=== PATIENT | female | born 1935 | race Caucasian/White ===

== ENCOUNTER 2017-01-03 22:54 | Inpatient (IN) | payer OTHER ==
--- NOTE | ~2017-01-03 | DS ---
Discharge Summary [place] [id number] [place]. [address] NAME: KARINA BARRAGAN : 33 STATUS : DIS IN PAT#: [id number] AGE: 81 ADM/REG DATE : 01/04/17 MR#: [id number] REPORT SERV DATE: 01/10/17 DICTATED BY: DATE: REPORT STATUS : Draft TRANSCRIBED BY: MODL DATE: 01/09/17 ADMISSION DATE: 01/04/2017 DISCHARGE DATE: 01/09/2017 DISCHARGE DIAGNOSES: 1. Diastolic heart failure. 2. Atrial fibrillation with rapid ventricular response. 3. Left pleural effusion. 4. Acute kidney injury and chronic kidney disease. 5. Diabetes mellitus, type 2. 6. Hypertension. 7. Right knee pain. CONSULTING PHYSICIANS: Include Dr. Aaron Cotto with Nephrology as well as Dr. Cerda with Orthopedic Surgery. DISCHARGE MEDICATION: Include Norvasc 10 mg p.o. daily, Lipitor 40 mg p.o. daily at bedtime, Coreg 12.5 mg p.o. b.i.d., vitamin B12 1000 mcg IM every Thursday, Zantac 150 mg p.o. b.i.d., Tricor 145 mg p.o. daily, ferrous sulfate 325 mg p.o. daily, Lantus 30 units subcu at 6 a.m. and 1700, Nitro-Bid ointment 0.5 inches q.12 hours, Apresoline 50 mg p.o. q.8 hours, Januvia 100 mg p.o. daily, Percocet 10/325 mg tablet q.4 hours p.r.n. for pain, Glynase 9 mg p.o. daily, Zofran 4 mg p.o. q.6 hours p.r.n. for nausea, Xarelto 15 mg p.o. with supper daily. IMAGING: Includes multiple chest x-rays, the last showing left pleural effusion that is not reticulated since prior thoracentesis. No pneumothorax was noted. Bibasilar atelectasis had improved and cardiomegaly was present but unchanged. The patient had a CT of the chest without contrast. This demonstrated bilateral pleural fluid and bibasilar atelectasis, slight mediastinal lymph node prominence that was nonspecific, calcific atherosclerosis including involvement of coronary arteries. She also had a CT of the abdomen and pelvis without contrast that showed colonic diverticula without diverticulitis. She has had a left renal cyst with minimal adjacent calcification. No evidence of an acute abnormality was noted in the abdomen or pelvis. PROCEDURES: The patient had thoracentesis in Interventional Radiology performed by Dr. Spencer Bond on 01/05/2017 to a total of 750 mL of fluid evacuated as noted above in the portable chest x-ray, and the patient had no further accumulation of the pleural fluid. She also had an x-ray of the right knee which demonstrated moderately severe degenerative changes with severe narrowing of the lateral joint compartment, possible small suprapatellar effusion. Dr. Cerda performed a cortisone injection on the right knee and the patient's pain has subsequently improved. For full history and physical, please refer to Dr. Chester Grace's dictation on 01/03/2017. Please also see Dr. Aaron Cotto's consultation dictation on 01/04/[address] Anderson Mcintosh's consultation dictation on 01/04/2017. HOSPITAL COURSE/PROBLEM LIST: Initially the patient was admitted with acute renal failure, hyperkalemia, and uncontrolled diastolic heart failure. She was found to have a left pleural effusion that was drained via thoracentesis by Dr. Bond as mentioned above. Discharge Summary [address] [address] NAME: KARINA BARRAGAN : 33 STATUS : DIS IN PAT#: [id number] AGE: 81 ADM/REG DATE : 01/04/17 MR#: [id number] REPORT SERV DATE: 01/10/17 DICTATED BY: DATE: REPORT STATUS : Draft TRANSCRIBED BY: MODL DATE: 01/09/17 Pleural fluid has not reaccumulated. Nephrology Dr. Aaron Cotto has followed the patient throughout her hospital course. Her creatinine is stable and currently is 2.32. Dr. Cotto agrees that the patient can be safely discharged. She will follow up with him in three to four weeks and continue Lasix 40 mg p.o. b.i.d. During her hospital stay, the patient went into atrial fibrillation with rapid ventricular response. She was started on a Cardizem drip and transitioned to Coreg p.o. Her heart rate is now controlled and she is sinus rhythm on the monitor. The patient states that she does not have a history of atrial fibrillation; however, she is on Rythmol for an unclear reason, likely this was for paroxysmal atrial fibrillation and the patient is a poor historian. Due to her renal function, I will not continue her Rythmol but keep her on Coreg as this seemed to control her rate. Based on her CHADSVASc score, I will also place her on Xarelto 15 mg p.o. daily. She will need to follow up with Cardiology for further management of this, also her diastolic heart failure which seems to be controlled at this time. She will need to follow up with further outpatient workup with the kiln hand. Dr. Mcintosh recommends that the patient get myocardial perfusion imaging at some point as an outpatient, so we will set this up for her prior to discharge. The patient has diabetes mellitus type 2 and she is noncompliant. Her blood sugars have been uncontrolled. After her knee injection with cortisol, her blood sugar actually was in the 400s. The patient states that this must be the cortisol. However, her RN yesterday found the patient drinking Mountain Dew that her family member brought in. This was discussed with the patient that this is not a good dietary choice for her diabetes mellitus and that she needs to get better control of her diabetes. She will follow up with her primary care doctor, Dr. Austin Ding within one week. I will continue her home regimen of Lantus as well as oral agents and have the patient monitor her blood sugar closely. The patient also has a history of hypertension. During her hospital stay, her blood pressure has been somewhat erratic ranging from 120s to 170 systolic. I will continue the patient on Coreg 12.5 mg p.o. b.i.d., as well as hydralazine p.o. Again, she will follow with her primary care doctor within one week for further management of her hypertension. The right knee pain has improved since her cortisol injection with Dr. Cerda. She can follow up p.r.n. as an outpatient if the pain returns. She is currently hemodynamically stable with the blood pressure at 168/70, heart rate 66, respirations 18, O2 saturation 94% on room air, temperature 97.6. CLR/MODL Eduard Wiggins NP / [id number] CC: MD Austin Velarde M.D. Claude Galphin, M.D.
--- NOTE | ~2017-01-03 | CN ---
Consultation Report [facility] [address] [place]. [address] NAME: KARINA RUBIO : 33 STATUS : ADM IN [facility]#: [id number] AGE: 81 ADM/REG DATE : 01/04/17 MR#: [id number] REPORT SERV DATE: 01/04/17 DICTATED BY: TALA PARNELL DATE: 01/04/17 REPORT STATUS : Draft TRANSCRIBED BY: MODL DATE: 01/04/17 CARDIOLOGY CONSULTATION DATE OF CONSULTATION: 01/04/2017 REASON FOR CONSULTATION: This is in regard to congestive heart failure. HISTORY OF PRESENT ILLNESS: Ms. Rubio is a pleasant 81-year-old woman, with a recent diagnosis of congestive heart failure. She presented to [facility] with symptoms of shortness of breath and worsening pedal edema. She underwent diuresis there that was continued as an outpatient. Her rehabilitation center that she was sent to after leaving [facility], she was noted to have worsening hyperkalemia, and worsening renal insufficiency, as well as shortness of breath, and dyspnea on exertion. She was admitted through the emergency room here. Chest x-ray demonstrated a large left pleural effusion as well as some pulmonary vascular congestion. She also had a potassium of 6.0 and a creatinine of 3.0. PAST MEDICAL HISTORY: Notable for congestive heart failure of uncertain etiology, hypertension, diabetes, GERD, and hyperlipidemia. HOME MEDICATIONS: Atorvastatin, atenolol, amlodipine, iron, Lasix 40 mg p.o. daily, glyburide, hydralazine, insulin. The patient is also taking propafenone for unclear reasons. FAMILY HISTORY: Noncontributory. Negative for premature coronary disease. SOCIAL HISTORY: Negative for tobacco or alcohol. REVIEW OF SYSTEMS: As noted above. All other systems were reviewed and negative. PHYSICAL EXAMINATION: VITAL SIGNS: Blood pressure of 140/60, pulse of 62, and respirations 18. GENERAL: Well developed, well nourished. HEENT: No icterus. Good dentition. NECK: Supple. No masses or thyromegaly LUNGS: Decreased breath sounds in the left base. COR: Normal S1, S2. No S3 or S4. No murmurs, clicks, rubs. No JVD ABD: Soft, nondistended, nontender, no hepatosplenomegaly. EXT: No clubbing, cyanosis or edema. Peripheral pulses 2+ or equal bilaterally. SKIN: Warm and dry. No visible lesions. MS: Chest wall without deformity, no obvious clavicular fractures. NEURO/PSYCH: Oriented X3. No anxiety or depression. Consultation Report [place] [address] [place]. [address] NAME: KARINA RUBIO : 33 STATUS : ADM IN [facility]#: [id number] AGE: 81 ADM/REG DATE : 01/04/17 MR#: [id number] REPORT SERV DATE: 01/04/17 DICTATED BY: TALA PARNELL DATE: 01/04/17 REPORT STATUS : Draft TRANSCRIBED BY: DARRIAN DATE: 01/04/17 DIAGNOSTIC DATA: EKG demonstrates sinus rhythm, IVCD of a left bundle-branch block type, cannot exclude anterior and inferior infarction. LABORATORY DATA: Initial laboratories; white count of 9.3, hematocrit 32, and platelet count 310. Sodium 139, potassium 6.0, creatinine 3.0, BNP is 708. Chest x-ray pulmonary edema, and large left pleural effusion. RECOMMENDATIONS: Potassium was treated last evening with bicarb diuretic. Nephrology consult was placed as well. I would consider a thoracentesis for the large left pleural effusion which would hopefully improve the patient's symptoms. If we cannot find a recent echocardiogram at [facility], I would recommend performing an another echocardiogram. At some point, could consider ischemia workup possibly with myocardial perfusion imaging. Of note, the patient also has a history of ureteral stent. We will defer to Nephrology likely renal ultrasound to make certain that there is no significant obstruction or hydronephrosis. EMILY/DARRIAN Tala Parnell M.D. / [id number] CC: Gladys Hood M.D.
--- NOTE | ~2017-01-03 | HP ---
History And Physical [facility] [address] [place]. [address] NAME: KARINA BARRAGAN : 33 STATUS : ADM IN [facility]#: [id number] AGE: 81 ADM/REG DATE : 01/04/17 MR#: [id number] REPORT SERV DATE: 01/04/17 DICTATED BY: ILIANA RIBEIRO DATE: 01/04/17 REPORT STATUS : Draft TRANSCRIBED BY: MODMaru DATE: 01/04/17 DATE OF ADMISSION: 01/04/2017 CHIEF COMPLAINT: An 81-year-old female recently diagnosed with new onset of congestive heart failure, now presenting with acute renal failure, hyperkalemia, and evidence of uncontrolled congestive heart failure. HISTORY OF PRESENTING ILLNESS: The patient's history was obtained through careful interview with the patient, daughter, and granddaughter coupled with review of [facility] medical records and medical records obtained from [facility]. The patient in late November 2016 developed increasing shortness of breath and lower extremity edema, presented to [facility] with an O2 saturation of 72% on room air, and signs and symptoms of congestive heart failure. She was admitted, ruled out for pneumonia and placed on diuretics. She improved considerably and was able to be discharged to [facility] on December 26. She has continued Lasix and treatments for heart failure, but this has actually led to progressive kidney dysfunction and evidence of hyperkalemia at the facility, this therefore prompted the facility to send the patient our hospital for further evaluation. The patient has had dyspnea on exertion with physical therapy attempts. She has had extreme orthopnea and paroxysmal nocturnal dyspnea. She has extreme tight lower extremity edema that has been progressing and abdominal swelling as well. She describes a cough productive of clear phlegm. She has had some intermittent confusion too bad. Sometimes her blood sugars have also been quite elevated over 200. Her main pain complaint has been in her knees and her back, but states at time she hurts "all over." She is unable to give a precise quality or severity of the pain, just stating "it is just bad". REVIEW OF SYSTEMS: Otherwise, a 14-point review of systems was obtained and was negative. PAST MEDICAL HISTORY: 1. Diastolic congestive heart failure, new diagnosis, 12/18/2016, unknown if the patient has coronary artery disease ? 2. Diabetes. 3. Hypertension. 4. Gastroesophageal reflux disorder. 5. Urinary tract infections. 6. Ureteral stents. PAST SURGICAL HISTORY: 1. Cholecystectomy. History And Physical [address] [address] NAME: KARINA BARRAGAN : 33 STATUS : ADM IN [facility]#: [id number] AGE: 81 ADM/REG DATE : 01/04/17 MR#: [id number] REPORT SERV DATE: 01/04/17 DICTATED BY: ILIANA RIBEIRO DATE: 01/04/17 REPORT STATUS : Draft TRANSCRIBED BY: DARRIAN DATE: 01/04/17 2. Hysterectomy. 3. Right breast biopsy. ALLERGIES: TO REGLAN. SOCIAL HISTORY: She has been a for nine years. Has been rehabilitating at [facility]. She lives in [place], [place], with her granddaughter. No tobacco abuse. No alcohol abuse. FAMILY HISTORY: Stroke. CURRENT MEDICATIONS: 1. Norvasc 10 mg daily. 2. Atenolol 50 mg p.o. b.i.d. 3. Lipitor 40 mg p.o. daily. 4. Vitamin B12. 5. Tricor 145 mg daily. 6. Iron supplement. 7. Lasix 40 mg daily. 8. Glyburide 9 mg p.o. daily. 9. Hydralazine 50 mg p.o. three times a day. 10.Lantus 30 units subcutaneous daily in the morning and in the evening. 11.Nitroglycerin ointment. 12.Zofran. 13.Percocet p.r.n. 14.Potassium 20 mEq daily. 15.Rythmol 150 mg p.o. t.i.d. 16.Zantac 150 mg p.o. b.i.d. 17.Januvia 100 mg p.o. daily. PHYSICAL EXAMINATION: VITAL SIGNS: Temperature 98.3, pulse 82, blood pressure 158/53, respiratory rate 28, and O2 saturation 95% on 2 L nasal cannula. GENERAL: A pleasant, cooperative female, no evidence of acute distress. HEENT: Pupils equal, round, and reactive to light. No conjunctival pallor. No scleral icterus. Nares are patent. Oropharynx is clear of obstruction. Moist mucous membranes. NECK: Trachea midline. No thyromegaly. LYMPH: No cervical lymphadenopathy. No supraclavicular lymphadenopathy. RESPIRATORY: The patient has wet rales probably dominant on exam, also diminished breath sounds at the left base of lung with dullness to percussion to suggest an effusion. No wheezes. No rhonchi. The patient has a labored respiratory effort. CARDIOVASCULAR: Regular rate and rhythm. No murmurs, rubs, or gallops are appreciated. The patient has deeply pitting lower extremity edema extending from her legs all the way up to her groin area and symmetrically. ABDOMEN: Quite distended by exam, but no tympanic resonance on percussion. Nontender throughout. No hepatosplenomegaly. DERMATOLOGICAL: Warm and dry extremities. No pallor. No cyanosis. History And Physical [address] [address] NAME: KARINA BARRAGAN : 33 STATUS : ADM IN [facility]#: [id number] AGE: 81 ADM/REG DATE : 01/04/17 MR#: [id number] REPORT SERV DATE: 01/04/17 DICTATED BY: ILIANA RIBEIRO DATE: 01/04/17 REPORT STATUS : Draft TRANSCRIBED BY: DARRIAN DATE: 01/04/17 PSYCHIATRIC: Normal affect. Good mood. Alert and oriented x3. LABORATORY DATA: White blood cell count 9.3, hemoglobin 10, hematocrit 32, and platelets 310. Sodium 139, potassium 6.0 initially and improved to 5.0 after treatment, chloride 105, bicarb 27, BUN 84, creatinine 3.01, and glucose 141. Brain natriuretic peptide 708. Troponin negative. INR 1.1. STUDIES: 1. Chest x-ray by my own evaluation shows a very large left pleural effusion, pulmonary edema changes. 2. EKG by my own evaluation shows initially extremely wide QRS with massively peaked T- waves, these were all new changes compared to EKGs in 2016, and 2009. By the time we treated patient's potassium aggressively, the EKG showed sinus rhythm with narrow QRS voltage. ASSESSMENT AND PLAN: 1. New diagnosis congestive heart failure, just 12/18/2016. Recheck an echocardiogram to define function. Check albumin level. Consult Cardiology. Try gentle IV Bumex. Add Coreg. Hold JOHANNA inhibitor and ARB secondary to acute renal failure. 2. Acute renal failure with hyperkalemia. Obtain Nephrology consult. Likely been induced by aggressive diuresis over the last 2-1/2 weeks, she still has considerable volume overload. I will place a Michaels catheter. Check a CT scan of the kidneys. Does have a history of ureteral stents. The patient's initial evaluation for potassium led to treatment as the patient had wide QRS with peaked T-waves. We gave insulin, bicarb, 1 L normal saline bolus and calcium gluconate with correction. We will need to watch very closely. We have started Kayexalate. 1. Pleural effusion. Check a CT scan of the chest to rule out complication, question whether the patient is a good candidate for thoracentesis ? 2. Diabetes. Check hemoglobin A1c. Place on sliding scale insulin and basal insulin. KPL/MODL Iliana Ribeiro M.D. / [id number] CC: Gladys Hood M.D.
--- NOTE | ~2017-01-03 | CN ---
Consultation Report [facility] [address] [place]. [address] NAME: KARINA RUBIO : 33 STATUS : ADM IN [facility]#: [id number] AGE: 81 ADM/REG DATE : 01/04/17 MR#: [id number] REPORT SERV DATE: 01/04/17 DICTATED BY: JOSE A LENNON DATE: 01/04/17 REPORT STATUS : Draft TRANSCRIBED BY: DARRIAN DATE: 01/04/17 NEPHROLOGY CONSULTATION DATE OF CONSULTATION: 01/04/2017 INDICATION FOR CONSULTATION: Acute on chronic kidney disease. HISTORY OF PRESENT ILLNESS: Ms. Rubio is an 81-year-old female who presented with shortness of breath and was found to have congestive heart failure with only left pleural effusion. Her creatinine was 3.01 with a potassium of 6.0 at time of her admission and subsequently has fallen to 2.63 after therapeutic adjustments. She has a history of chronic kidney disease and has previously been seen by Dr. Zamudio at [facility] with a creatinine ranging from 2.0 to 2.7, and was 2.7 upon her release to [facility]. She has been on Lasix but no other medications that would influence her kidney function, and denies nonsteroidal antiinflammatory drugs. She reports recurrent UTIs, but none over the past five months. She has had prior nephrolithiasis requiring removal of a stone from her ureter requiring stent in 1999. Presently, she denies any ureteral stents. PAST MEDICAL HISTORY: CKD stage 3 to 4, creatinine baseline 2.0 to 2.7; hypertension; hyperlipidemia; anemia; type 2 diabetes mellitus; osteoarthritis; gastroesophageal reflux disease; nephrolithiasis requiring stone removal with ureteral stent in 1999; history of recurrent UTIs. PAST SURGICAL HISTORY: Cholecystectomy, hysterectomy, left foot surgery, cysto with stone removal in 1999. FAMILY HISTORY: Mother with hypertension, diabetes, and multiple CVAs. Son with small-cell lung cancer. Two sisters with cancer of unknown etiology. No history of end-stage renal disease. SOCIAL HISTORY: The patient is , presently residing at [facility]. No use of tobacco products, alcohol, or illicit drugs. ALLERGIES: REGLAN AND BACTRIM. REVIEW OF SYSTEMS: HEENT: No change in visual acuity. No epistaxis. No otic infection. No pharyngitis. PULMONARY: Notes some shortness of breath particularly with exertion. No cough or hemoptysis. CARDIAC: Denies chest pain. Has noted lower extremity edema. GI: Has noted nausea with dry heaves. No vomiting of food. Denies melena. : History of UTIs. No recent UTIs. No gross hematuria or dysuria. MUSCULOSKELETAL: Pain in back and knees. INTEGUMENT: No rash. No itching. Consultation Report [place] [address] [place]. [address] NAME: KARINA RUBIO : 33 STATUS : ADM IN PAT#: [id number] AGE: 81 ADM/REG DATE : 01/04/17 MR#: [id number] REPORT SERV DATE: 01/04/17 DICTATED BY: JOSE A LENNON DATE: 01/04/17 REPORT STATUS : Draft TRANSCRIBED BY: DARRIAN DATE: 01/04/17 NEUROLOGIC: No seizure activity or lateralizing weakness. Remainder of 12-point review of systems is normal. PHYSICAL EXAMINATION: GENERAL: Pleasant, elderly female, alert and cooperative. VITAL SIGNS: Blood pressure 158/52, respiratory rate 20, temperature 98.3, pulse 82. HEENT: Eyes, no scleral icterus. Pupils equal and reactive to light. Extraocular movement intact. Nares patent. No lesions. Throat, no injection. Mucous membranes moist. NECK: No thyromegaly, masses, or bruits. CHEST/LUNGS: Decreased breath sounds posteriorly, some dullness at bases, left greater than right. Posterior crackles noted. CARDIAC: Regular rate and rhythm. A 1/6 systolic ejection murmur. No gallop. No rub. ABDOMEN: Supple. Normoactive bowel sounds. Nontender. No hepatosplenomegaly. BREAST/PELVIC/RECTAL: Exam not performed. EXTREMITIES: 2 to 3+ edema. No calf tenderness. DERMIS: No rash. No skin lesions. NEUROLOGIC: No lateralizing weakness. Cranial nerves intact. IMPRESSION: 1. Acute on chronic renal failure, likely prerenal, doubt infection. Unsure that she may have had some urinary retention. 2. Acute on chronic systolic congestive heart failure. 3. Hypertension. 4. Hyperlipidemia. 5. Anemia. 6. Type 2 diabetes mellitus. 7. Osteoarthritis. 8. Gastroesophageal reflux disease. 9. Nephrolithiasis. 10.History of urinary tract infections. PLAN: 1. Concur with med changes. 2. Concur with thoracentesis. 3. Additional lab. CG/MODL Jose A Lennon M.D. / [id number] Consultation Report [address] [place]. [address] NAME: KARINA RUBIO : 31 STATUS : ADM IN [facility]#: [id number] AGE: 81 ADM/REG DATE : 01/04/17 MR#: [id number] REPORT SERV DATE: 01/04/17 DICTATED BY: JOSE A LENNON DATE: 01/04/17 REPORT STATUS : Draft TRANSCRIBED BY: MODL DATE: 01/04/17 CC: Gladys Hood M.D.
[~2017-01-03 22:54] MED LIST: ATEN100 PO; AVANDIA4 PO; GLYNASE3 PO; JANUVIA100 MG PO; LANTUS SC; LEXAPRO10 PO; LIPITOR20 PO; NORV10 PO; TRICOR48 PO; VOLT25 PO; VYTORIN 10/20 T1 TAB PO; ZANTAC150 MG PO
[2017-01-03 23:15] LABS: BASOPHILS 0.1 %; BASOPHILS ABSOLUTE 0.01 10/3/uL (0.0-0.16); EOSINOPHILS 1.7 %; EOSINOPHILS ABSOLUTE 0.16 10/3/uL (0.0-0.53); ER CBC TAT 0 Hrs 05 Mins; IMMATURE GRANULOCYTES 0.2 %; IMMATURE GRANULOCYTES ABSOLUTE 0.02 10/3/uL (0.0-0.11); LYMPHOCYTES 19.8 %; LYMPHOCYTES ABSOLUTE 1.83 10/3/uL (0.67-4.30); MEAN CORPUS HGB CONC 31.8 g/dL (32.0-36.0); MEAN CORPUSCULAR HEMOGLOB 28.1 pg (26.0-34.0); MEAN CORPUSCULAR VOLUME 88.5 fL (80-100); MEAN PLATELET VOLUME 11.4 fL (9.2-13.0); MONOCYTES 11.8 %; MONOCYTES ABSOLUTE 1.09 10/3/uL (0.21-1.20); NEUTROPHILS 66.4 %; NEUTROPHILS ABSOLUTE 6.14 10/3/uL (2.02-8.40); RBC DISTRIBUTION WIDTH 14.8 % (12.0-16.0); WHITE BLOOD CELLS 9.3 10/3/uL (4.5-10.5)
[2017-01-03 23:16] LABS: HEMATOCRIT 32.4 % (36.0-48.0); HEMOGLOBIN 10.3 g/dL (12.0-16.0); MANUAL DIFF NO %; PLATELET COUNT 310 10/3/uL (150-400); RED CELL COUNT 3.66 10/6/uL (4.0-5.6)
[2017-01-03 23:24] LABS: INTERNATIONAL NORMAL RATI 1.1 UNITS (-); PARTIAL THROMBO TIME 26.6 SEC (22.5-37.2); PROTIME (NOT ORD) 13.9 SEC (12.0-14.5)
[2017-01-03 23:31] LABS: CALCIUM, SERUM 9.1 MG/DL (8.5-10.4); CHEST PAIN PROFILE TAT 0 Hrs 21 Mins; CHLORIDE, SERUM 105 MMOL/L (96-112); CO2 (CARBON DIOXIDE) 27 MMOL/L (24-34); SODIUM, SERUM 139 MMOL/L (135-148); TROPONIN I <0.02 NG/ML (<0.05)
[2017-01-03 23:32] LABS: BUN (BLOOD UREA NITROGEN) 84 MG/DL (6-23); CREATININE 3.01 MG/DL (0.55-1.02); GFR AFRICAN AMERICAN 16 ML/MIN (>=60); GFR NON AFRICAN AMERICAN 14 ML/MIN (>=60); GLUCOSE, SERUM 141 MG/DL (60-99)
[2017-01-04 03:07] LABS: CHLORIDE, SERUM 107 MMOL/L (96-112); CO2 (CARBON DIOXIDE) 25 MMOL/L (24-34); CREATININE 2.88 MG/DL (0.55-1.02); GFR AFRICAN AMERICAN 17 ML/MIN (>=60); GFR NON AFRICAN AMERICAN 14 ML/MIN (>=60); SODIUM, SERUM 144 MMOL/L (135-148)
[2017-01-04 03:08] LABS: BUN (BLOOD UREA NITROGEN) 80 MG/DL (6-23); GLUCOSE, SERUM 54 MG/DL (60-99)
[2017-01-04] MEDS ORDERED: NORV10 PO (05:05)
[2017-01-04] MEDS ORDERED: TRICOR145 PO (05:06)
[2017-01-04] MEDS ORDERED: LIPITOR40 PO (05:06)
[2017-01-04] MEDS ORDERED: ATEN50 PO (05:06)
[2017-01-04] MEDS ORDERED: APRES50 PO (05:07)
[2017-01-04] MEDS ORDERED: GLYNASE6 MG PO (05:07)
[2017-01-04] MEDS ORDERED: JANUVIA100 MG PO (05:08)
[2017-01-04] MEDS ORDERED: ZANTAC150 MG PO (05:08)
[2017-01-04] MEDS ORDERED: RYTHMOL150 MG PO (05:08)
[2017-01-04 05:10] LABS: ASCORBIC ACID (UR NOT ORDER) NEG (NEG); BILIRUBIN, URINE NEGATIVE (NEG); ER URINALYSIS TAT 0 Hrs 00 Mins; KETONE, URINE NEGATIVE (NEG); LEUKOCYTE ESTERASE(NOT OR NEG (NEG); NITRITE (URINE) NEG (NEG); WBC (NOT ORDERED) (RFLEX) 2 (0-5)
[2017-01-04] MEDS ORDERED: NITROBID2 % TOP (05:10)
[2017-01-04] MEDS ORDERED: LANTUS SQ ×2 (05:11→05:14)
[2017-01-04] MEDS ORDERED: FERROUS SULF325 M1 PO (05:12)
[2017-01-04] MEDS ORDERED: PERCOCET 10/3251 TAB PO (05:12)
[2017-01-04] MEDS ORDERED: L20 PO (05:13)
[2017-01-04] MEDS ORDERED: GLYNASE3 PO (05:13)
[2017-01-04] MEDS ORDERED: KLOR-CON M2020 MEQ PO (05:13)
[2017-01-04] MEDS ORDERED: ZOFRAN4 PO (05:14)
[2017-01-04] MEDS ORDERED: VITAMIN B-121000 MC1 IM (05:16)
[2017-01-04 08:12] LABS: CALCIUM, SERUM 9.1 MG/DL (8.5-10.4); CHLORIDE, SERUM 107 MMOL/L (96-112); CO2 (CARBON DIOXIDE) 25 MMOL/L (24-34); CREATININE 2.72 MG/DL (0.55-1.02); GFR AFRICAN AMERICAN 18 ML/MIN (>=60); GFR NON AFRICAN AMERICAN 16 ML/MIN (>=60); POTASSIUM, SERUM 4.8 MMOL/L (3.5-5.3); SODIUM, SERUM 144 MMOL/L (135-148)
[2017-01-04 08:14] LABS: BUN (BLOOD UREA NITROGEN) 76 MG/DL (6-23); GLUCOSE, SERUM 73 MG/DL (60-99)
[2017-01-04 11:51] LABS: BASOPHILS 0.1 %; BASOPHILS ABSOLUTE 0.01 10/3/uL (0.0-0.16); EOSINOPHILS 1.6 %; EOSINOPHILS ABSOLUTE 0.14 10/3/uL (0.0-0.53); HEMATOCRIT 30.8 % (36.0-48.0); HEMOGLOBIN 9.9 g/dL (12.0-16.0); IMMATURE GRANULOCYTES 0.2 %; IMMATURE GRANULOCYTES ABSOLUTE 0.02 10/3/uL (0.0-0.11); LYMPHOCYTES ABSOLUTE 1.06 10/3/uL (0.67-4.30); MANUAL DIFF NO %; MEAN CORPUS HGB CONC 32.1 g/dL (32.0-36.0); MEAN CORPUSCULAR HEMOGLOB 28.3 pg (26.0-34.0); MEAN PLATELET VOLUME 10.7 fL (9.2-13.0); MONOCYTES 9.6 %; MONOCYTES ABSOLUTE 0.85 10/3/uL (0.21-1.20); NEUTROPHILS 76.5 %; NEUTROPHILS ABSOLUTE 6.78 10/3/uL (2.02-8.40); PLATELET COUNT 258 10/3/uL (150-400); RBC DISTRIBUTION WIDTH 14.6 % (12.0-16.0); WHITE BLOOD CELLS 8.9 10/3/uL (4.5-10.5)
[2017-01-04 12:00] LABS: INTERNATIONAL NORMAL RATI 1.1 UNITS (-); PARTIAL THROMBO TIME 27.7 SEC (22.5-37.2); PROTIME (NOT ORD) 14.3 SEC (12.0-14.5)
[2017-01-04 12:16] LABS: ALBUMIN 3.5 G/DL (3.5-5.0); ALKALINE PHOSPHATASE 56 U/L (45-117); BUN (BLOOD UREA NITROGEN) 77 MG/DL (6-23); CALCIUM, SERUM 9.2 MG/DL (8.5-10.4); CHLORIDE, SERUM 108 MMOL/L (96-112); CO2 (CARBON DIOXIDE) 26 MMOL/L (24-34); CREATININE 2.63 MG/DL (0.55-1.02); GFR AFRICAN AMERICAN 19 ML/MIN (>=60); GFR NON AFRICAN AMERICAN 16 ML/MIN (>=60); GLUCOSE, SERUM 72 MG/DL (60-99); POTASSIUM, SERUM 4.7 MMOL/L (3.5-5.3); SGOT(AST) 24 U/L (5-40); SGPT(ALT) 24 U/L (5-65); SODIUM, SERUM 143 MMOL/L (135-148); TOTAL BILIRUBIN 0.4 MG/DL (0-1.2); TROPONIN I 0.02 NG/ML (<0.05)
[2017-01-04 12:18] LABS: CK-MB 1.9 NG/ML; CPK 152 U/L (0-200); GLOBULIN 3.5 G/DL (2.5-4.1)
[2017-01-04 19:08] LABS: CREATININE (RANDOM URINE) 38.5 MG/DL; CREATININE, URINE 38.5 MG/DL; MICROALBUMIN, RANDOM URINE 48.6 MG/DL
[2017-01-05 05:30] LABS: BASOPHILS 0.2 %; BASOPHILS ABSOLUTE 0.01 10/3/uL (0.0-0.16); EOSINOPHILS 3.5 %; EOSINOPHILS ABSOLUTE 0.23 10/3/uL (0.0-0.53); HEMATOCRIT 30.2 % (36.0-48.0); HEMOGLOBIN 9.6 g/dL (12.0-16.0); IMMATURE GRANULOCYTES 0.3 %; IMMATURE GRANULOCYTES ABSOLUTE 0.02 10/3/uL (0.0-0.11); LYMPHOCYTES 18.3 %; LYMPHOCYTES ABSOLUTE 1.19 10/3/uL (0.67-4.30); MEAN CORPUS HGB CONC 31.8 g/dL (32.0-36.0); MEAN CORPUSCULAR HEMOGLOB 27.9 pg (26.0-34.0); MEAN CORPUSCULAR VOLUME 87.8 fL (80-100); MEAN PLATELET VOLUME 10.9 fL (9.2-13.0); MONOCYTES 12.8 %; MONOCYTES ABSOLUTE 0.83 10/3/uL (0.21-1.20); NEUTROPHILS 64.9 %; NEUTROPHILS ABSOLUTE 4.22 10/3/uL (2.02-8.40); PLATELET COUNT 226 10/3/uL (150-400); RBC DISTRIBUTION WIDTH 14.6 % (12.0-16.0); RED CELL COUNT 3.44 10/6/uL (4.0-5.6); WHITE BLOOD CELLS 6.5 10/3/uL (4.5-10.5)
[2017-01-05 05:31] LABS: MANUAL DIFF NO %
[2017-01-05 05:40] LABS: INTERNATIONAL NORMAL RATI 1.1 UNITS (-); PARTIAL THROMBO TIME 25.3 SEC (22.5-37.2)
[2017-01-05 05:43] LABS: ALBUMIN 3.1 G/DL (3.5-5.0); CALCIUM, SERUM 8.9 MG/DL (8.5-10.4); CHLORIDE, SERUM 107 MMOL/L (96-112); CO2 (CARBON DIOXIDE) 27 MMOL/L (24-34); CREATININE 2.39 MG/DL (0.55-1.02); GFR AFRICAN AMERICAN 21 ML/MIN (>=60); GFR NON AFRICAN AMERICAN 18 ML/MIN (>=60); PHOSPHORUS, SERUM 5.4 MG/DL (2.5-4.5); POTASSIUM, SERUM 4.2 MMOL/L (3.5-5.3); SODIUM, SERUM 144 MMOL/L (135-148)
[2017-01-05 05:44] LABS: BUN (BLOOD UREA NITROGEN) 70 MG/DL (6-23); GLUCOSE, SERUM 51 MG/DL (60-99)
[2017-01-05 05:54] LABS: GLYCOHEMOGLOBIN (HbA1c) 7.6 % (4.7-6.1)
[2017-01-05 06:16] LABS: T PROTEIN (ELECT)(NOT OR 5.9 G/DL (6.0-8.5)
[2017-01-05 10:17] LABS: A/G 1.49 RATIO (0.9-2.10); ALB RELATIVE % 59.9 % (60.0-89.0); ALBUMIN (ELECTRO) 3.53 GM/DL (3.2-5.5); ALPHA 1 (ELECTRO) 0.22 GM/DL (0.1-0.4); ALPHA 1 RELAT % (NOT ORD) 3.7 % (1.0-4.0); ALPHA 2 (ELECTRO) 0.87 GM/DL (0.5-1.10); ALPHA 2 RELAT % 14.7 % (4.5-26.0); BETA GLOBULIN (SPE) 0.63 GM/DL (0.60-1.30); BETA RELATIVE % 10.6 % (9.0-22.0); GAMMA GLOBULIN (SPE) 0.65 G/DL (0.70-1.60); GAMMA RELAT % 11.1 % (6.0-22.0)
[2017-01-05 15:43] LABS: LDH BODY FLUID (NOT ORD) 88 U/L; PROTEIN BODY FLUID 2.7 G/DL
[2017-01-05 16:13] LABS: BF TOTAL CELL CT (NOT ORD 963 /MM3; BODY FLUID RBC (NOT ORD) 27 /MM3
[2017-01-05 16:19] LABS: BD FL LYMPH (NOT ORD) 63 %; BD FL SOURCE (NOT ORD) PLEURAL; BF BASO (NOT OF) 0 %; BF LARGE MONONUCLEAR 36 %; BODY FLUID EOS (NOT ORD) 0 %; BODY FLUID SEG (NOT ORD) 1 %
[2017-01-06 05:01] LABS: BASOPHILS 0.2 %; BASOPHILS ABSOLUTE 0.01 10/3/uL (0.0-0.16); EOSINOPHILS 2.4 %; EOSINOPHILS ABSOLUTE 0.14 10/3/uL (0.0-0.53); HEMATOCRIT 29.8 % (36.0-48.0); HEMOGLOBIN 9.4 g/dL (12.0-16.0); IMMATURE GRANULOCYTES 0.2 %; IMMATURE GRANULOCYTES ABSOLUTE 0.01 10/3/uL (0.0-0.11); LYMPHOCYTES 18.3 %; LYMPHOCYTES ABSOLUTE 1.07 10/3/uL (0.67-4.30); MEAN CORPUS HGB CONC 31.5 g/dL (32.0-36.0); MEAN CORPUSCULAR HEMOGLOB 27.7 pg (26.0-34.0); MEAN CORPUSCULAR VOLUME 87.9 fL (80-100); MEAN PLATELET VOLUME 10.9 fL (9.2-13.0); MONOCYTES 16.4 %; MONOCYTES ABSOLUTE 0.96 10/3/uL (0.21-1.20); NEUTROPHILS 62.5 %; NEUTROPHILS ABSOLUTE 3.67 10/3/uL (2.02-8.40); PLATELET COUNT 208 10/3/uL (150-400); RBC DISTRIBUTION WIDTH 14.3 % (12.0-16.0); RED CELL COUNT 3.39 10/6/uL (4.0-5.6); WHITE BLOOD CELLS 5.9 10/3/uL (4.5-10.5)
[2017-01-06 05:07] LABS: INTERNATIONAL NORMAL RATI 1.2 UNITS (-); PARTIAL THROMBO TIME 29.8 SEC (22.5-37.2); PROTIME (NOT ORD) 14.7 SEC (12.0-14.5)
[2017-01-06 05:10] LABS: MANUAL DIFF NO %
[2017-01-06 05:39] LABS: % IRON SAT 12 % (20-50); ALBUMIN 2.9 G/DL (3.5-5.0); BUN (BLOOD UREA NITROGEN) 65 MG/DL (6-23); CALCIUM, SERUM 8.4 MG/DL (8.5-10.4); CHLORIDE, SERUM 106 MMOL/L (96-112); CO2 (CARBON DIOXIDE) 29 MMOL/L (24-34); CREATININE 2.33 MG/DL (0.55-1.02); FERRITIN 129 NG/ML (8-252); FOLATE 7.9 NG/ML (>5.2); GFR AFRICAN AMERICAN 22 ML/MIN (>=60); GFR NON AFRICAN AMERICAN 19 ML/MIN (>=60); GLUCOSE, SERUM 148 MG/DL (60-99); IRON BINDING CAPACITY 279 MCG/DL (225-410); IRON, SERUM 34 MCG/DL (35-150); PHOSPHORUS, SERUM 4.4 MG/DL (2.5-4.5); POTASSIUM, SERUM 4.2 MMOL/L (3.5-5.3); SODIUM, SERUM 144 MMOL/L (135-148)
[2017-01-07 07:11] LABS: BASOPHILS 0.1 %; BASOPHILS ABSOLUTE 0.01 10/3/uL (0.0-0.16); EOSINOPHILS 1.5 %; EOSINOPHILS ABSOLUTE 0.11 10/3/uL (0.0-0.53); HEMATOCRIT 31.4 % (36.0-48.0); IMMATURE GRANULOCYTES 0.1 %; IMMATURE GRANULOCYTES ABSOLUTE 0.01 10/3/uL (0.0-0.11); LYMPHOCYTES 18.2 %; LYMPHOCYTES ABSOLUTE 1.33 10/3/uL (0.67-4.30); MANUAL DIFF NO %; MEAN CORPUS HGB CONC 31.8 g/dL (32.0-36.0); MEAN CORPUSCULAR HEMOGLOB 27.8 pg (26.0-34.0); MEAN CORPUSCULAR VOLUME 87.2 fL (80-100); MEAN PLATELET VOLUME 10.8 fL (9.2-13.0); MONOCYTES 18.4 %; MONOCYTES ABSOLUTE 1.34 10/3/uL (0.21-1.20); NEUTROPHILS 61.7 %; NEUTROPHILS ABSOLUTE 4.49 10/3/uL (2.02-8.40); PLATELET COUNT 185 10/3/uL (150-400); RBC DISTRIBUTION WIDTH 14.1 % (12.0-16.0); WHITE BLOOD CELLS 7.3 10/3/uL (4.5-10.5)
[2017-01-07 07:29] LABS: BUN (BLOOD UREA NITROGEN) 57 MG/DL (6-23); CALCIUM, SERUM 8.7 MG/DL (8.5-10.4); CHLORIDE, SERUM 104 MMOL/L (96-112); CO2 (CARBON DIOXIDE) 25 MMOL/L (24-34); CREATININE 2.04 MG/DL (0.55-1.02); GFR AFRICAN AMERICAN 25 ML/MIN (>=60); GFR NON AFRICAN AMERICAN 22 ML/MIN (>=60); GLUCOSE, SERUM 149 MG/DL (60-99); PHOSPHORUS, SERUM 3.4 MG/DL (2.5-4.5); POTASSIUM, SERUM 4.2 MMOL/L (3.5-5.3); SODIUM, SERUM 140 MMOL/L (135-148)
[2017-01-08 05:12] LABS: BASOPHILS 0 %; EOSINOPHILS 0 %; HEMOGLOBIN 9.1 g/dL (12.0-16.0); IMMATURE GRANULOCYTES 0.3 %; IMMATURE GRANULOCYTES ABSOLUTE 0.01 10/3/uL (0.0-0.11); LYMPHOCYTES 21.4 %; LYMPHOCYTES ABSOLUTE 0.83 10/3/uL (0.67-4.30); MEAN CORPUS HGB CONC 32.7 g/dL (32.0-36.0); MEAN CORPUSCULAR HEMOGLOB 28.4 pg (26.0-34.0); MEAN CORPUSCULAR VOLUME 86.9 fL (80-100); MONOCYTES 6.5 %; MONOCYTES ABSOLUTE 0.25 10/3/uL (0.21-1.20); NEUTROPHILS 71.8 %; NEUTROPHILS ABSOLUTE 2.78 10/3/uL (2.02-8.40); PLATELET COUNT 153 10/3/uL (150-400)
[2017-01-08 05:15] LABS: HEMATOCRIT 27.8 % (36.0-48.0); MANUAL DIFF NO %; WHITE BLOOD CELLS 3.9 10/3/uL (4.5-10.5)
[2017-01-08 05:28] LABS: ALBUMIN 2.6 G/DL (3.5-5.0); BUN (BLOOD UREA NITROGEN) 66 MG/DL (6-23); CALCIUM, SERUM 8.9 MG/DL (8.5-10.4); CHLORIDE, SERUM 102 MMOL/L (96-112); CO2 (CARBON DIOXIDE) 24 MMOL/L (24-34); CREATININE 2.33 MG/DL (0.55-1.02); GFR AFRICAN AMERICAN 22 ML/MIN (>=60); GFR NON AFRICAN AMERICAN 19 ML/MIN (>=60); GLUCOSE, SERUM 320 MG/DL (60-99); PHOSPHORUS, SERUM 3.4 MG/DL (2.5-4.5); POTASSIUM, SERUM 4.6 MMOL/L (3.5-5.3); SODIUM, SERUM 138 MMOL/L (135-148)
[2017-01-09 06:04] LABS: BASOPHILS 0 %; EOSINOPHILS 0 %; HEMATOCRIT 30.5 % (36.0-48.0); HEMOGLOBIN 10.2 g/dL (12.0-16.0); IMMATURE GRANULOCYTES 0.3 %; IMMATURE GRANULOCYTES ABSOLUTE 0.02 10/3/uL (0.0-0.11); LYMPHOCYTES ABSOLUTE 1.02 10/3/uL (0.67-4.30); MEAN CORPUS HGB CONC 33.4 g/dL (32.0-36.0); MEAN CORPUSCULAR HEMOGLOB 28.3 pg (26.0-34.0); MEAN CORPUSCULAR VOLUME 84.7 fL (80-100); MEAN PLATELET VOLUME 11.2 fL (9.2-13.0); MONOCYTES 7.8 %; MONOCYTES ABSOLUTE 0.57 10/3/uL (0.21-1.20); NEUTROPHILS 77.9 %; PLATELET COUNT 187 10/3/uL (150-400); RBC DISTRIBUTION WIDTH 14.1 % (12.0-16.0)
[2017-01-09 06:05] LABS: MANUAL DIFF NO %; WHITE BLOOD CELLS 7.3 10/3/uL (4.5-10.5)
[2017-01-09 06:15] LABS: CALCIUM, SERUM 9.3 MG/DL (8.5-10.4); CHLORIDE, SERUM 100 MMOL/L (96-112); CO2 (CARBON DIOXIDE) 26 MMOL/L (24-34); CREATININE 2.32 MG/DL (0.55-1.02); GFR AFRICAN AMERICAN 22 ML/MIN (>=60); GFR NON AFRICAN AMERICAN 19 ML/MIN (>=60); PHOSPHORUS, SERUM 3.9 MG/DL (2.5-4.5); POTASSIUM, SERUM 4.9 MMOL/L (3.5-5.3); SODIUM, SERUM 137 MMOL/L (135-148)
[2017-01-09 06:17] LABS: BUN (BLOOD UREA NITROGEN) 76 MG/DL (6-23); GLUCOSE, SERUM 173 MG/DL (60-99)
[2017-01-09] MEDS ORDERED: XARELTO15 MG PO (11:32)
[2017-01-09] MEDS ORDERED: COREG12 PO (11:32)
[2017-01-09] MEDS ORDERED: L40 PO (11:33)
[2017-01-09] MEDS ORDERED: JANUVIA25 MG PO (12:37)
== END 2017-01-09 16:17 | disposition home health service (06) | DRG 682 ==
LOC: ER 22:54 → 7NO 01-04 02:59
PROVIDERS: Emergency Medicine; Hospitalist; Internal Medicine; Internal Medicine Cardiovascular Disease; Internal Medicine Nephrology; Nurse Practitioner Acute Care; Student in an Organized Health Care Education/Training Program
PROC: 0W9B3ZX Drainage of Left Pleural Cavity, Percutaneous Approach, Diagnostic (ICD-10-PCS; principal; 2017-01-05)
PROC: 3E0U33Z Introduction of Anti-inflammatory into Joints, Percutaneous Approach (ICD-10-PCS; 2017-01-06)
DX: N17.9 Acute kidney failure, unspecified (principal); I50.33 Acute on chronic diastolic (congestive) heart failure; J90 Pleural effusion, not elsewhere classified; I13.0 Hypertensive heart and chronic kidney disease with heart failure and stage 1 through stage 4 chronic kidney disease, or unspecified chronic kidney disease; E87.5 Hyperkalemia; I48.0 Paroxysmal atrial fibrillation; N18.9 Chronic kidney disease, unspecified; E11.22 Type 2 diabetes mellitus with diabetic chronic kidney disease; M17.11 Unilateral primary osteoarthritis, right knee; Z91.19 Patient's noncompliance with other medical treatment and regimen; Z87.440 Personal history of urinary (tract) infections; K21.9 Gastro-esophageal reflux disease without esophagitis; Z87.442 Personal history of urinary calculi; Z90.49 Acquired absence of other specified parts of digestive tract; Z90.710 Acquired absence of both cervix and uterus; Z82.49 Family history of ischemic heart disease and other diseases of the circulatory system; Z83.3 Family history of diabetes mellitus; Z86.73 Personal history of transient ischemic attack (TIA), and cerebral infarction without residual deficits
CPT/HCPCS: 32555; 71010; 71250; 73560-RT; 74176; 80048; 80053; 80069; 81001; 82043; 82550; 82553; 82570; 82607; 82728; 82746; 82962; 83036; 83540; 83550; 83615; 83735; 83880; 84100; 84155; 84157; 84165; 84300; 84443; 84484; 84550; 85025; 85610; 85730; 87070; 87205; 88112; 88305; 89051; 93005; 93306; 96374; 96375; 97162-GP; 99291; A9270-GY; J0610; J1040; J2405